=== PATIENT | female | born 1970 | race Caucasian/White ===

== ENCOUNTER → 2016-06-25 | Outpatient (CLI) | payer OTHER | LOC: BHSO 15:49 | DX: F33.1 Major depressive disorder, recurrent, moderate (principal) ==

== ENCOUNTER → 2016-09-24 | Outpatient (CLI) | payer OTHER | LOC: BHSO 15:49 | DX: F41.1 Generalized anxiety disorder (principal) ==

== ENCOUNTER → 2016-11-24 | Outpatient (CLI) | payer OTHER | LOC: BHSO 15:08 | DX: F33.1 Major depressive disorder, recurrent, moderate (principal) ==